=== PATIENT | female | born 1985 ===

== ENCOUNTER 2016-08-25 16:04 | Emergency (ER) | payer SELFPAY ==
[2016-08-25 16:12] VITALS: BP 108/66
--- NOTE | 2016-08-25 18:12 | UC ---
Lambert Yañez Benjamin, scribed for Madison Garcia MD on 08/25/16 at 1721 . Abdominal Pain Female HPI - HPI Summary HPI Summary: 31yo female c/o having intermittent RLQ and LLQ pain for a month that started to linger and worsened the past 4 days. The pain is worse on the right, and is described as sharp poking pain in 6 out of 10 scale that radiates to lower back. Pain is worse with pressure on right foot. Urinating provides a brief relief. Denies vaginal discharge, hematuria, and is not on BCP. Pt is currently breast feeding. LMP was on August 07, and was a normal MP. [id number]. No Hx of C- section. Hx of Appy. Gall bladder is still intact. Fhx includes breast CA. Pt states that she experiences lots of groin muscle strains from carrying her childrens. - History of Current Complaint Chief Complaint: UCAbdominalPain Stated Complaint: ABDOMINAL AND BACK PAIN Hx Obtained From: Patient Hx Last Menstrual Period: 08/03/16 ?: No Onset/Duration: Gradual Onset, Lasting Weeks - for a month, Still Present, Worse Since - 4 days ago Timing: Intermittent Episodes Lasting: Severity Initially: Mild Severity Currently: Moderate Pain Intensity: 6 Pain Scale Used: 0-10 Numeric Location: Discrete At: RLQ, Discrete At: LLQ Radiates: Yes Radiates to: Back - lower back Character: Sharp Aggravating Factor(s): Other: - pressure on right foot Alleviating Factor(s): Nothing Associated Signs and Symptoms: Positive: Back Pain - lower Allergies/Adverse Reactions: Allergies Allergy/AdvReac Type Severity Reaction Status Date / Time Shellfish Allergy Allergy Hives/Diff. Verified 08/25/16 16:36 Breathing/I tching PMH/Surg Hx/FS Hx/Imm Hx Previously Healthy: Yes - Surgical History Surgical History: Yes Surgery Procedure, Year, and Place: appendix age 21 - Family History Known Family History: Positive: Other - breast CA Negative: Cardiac Disease, Hypertension, Diabetes - Social History Occupation: Employed Full-time Lives: With Family Alcohol Use: Rare Substance Use Type: None Smoking Status (MU): Never Smoked Tobacco Review of Systems Constitutional: Negative Skin: Negative Eyes: Negative ENT: Negative Respiratory: Negative Cardiovascular: Negative Gastrointestinal: Abdominal Pain - RLQ and LLQ Genitourinary: Negative Motor: Negative Neurovascular: Negative Musculoskeletal: Negative Neurological: Negative Psychological: Negative All Other Systems Reviewed And Are Negative: Yes Physical Exam Triage Information Reviewed: Yes Appearance: Well-Appearing, Well-Nourished, Pain Distress - mild Vital Signs: Initial Vital Signs Temp 99.6 F 08/25/16 16:11 Pulse 68 08/25/16 16:11 Resp 16 08/25/16 16:11 BP 108/66 08/25/16 16:11 Pulse Ox 100 08/25/16 16:11 Vital Signs Reviewed: Yes Eyes: Positive: Conjunctiva Clear ENT: Positive: Normal ENT inspection, Hearing grossly normal. Negative: Muffled /hoarse voice Neck: Positive: Supple, Nontender Respiratory: Positive: Lungs clear, Normal breath sounds, No respiratory distress Cardiovascular: Positive: RRR, No Murmur, Pulses Normal Abdomen Description: Positive: No Organomegaly, Soft, Other: - Tender along the rectus muscles, bilaterally.. Negative: CVA Tenderness (R), CVA Tenderness (L) , Distended, Guarding, Hepatomegaly, McBurney's Point Tenderness, Peritoneal Signs, Pulsatile Mass, Splenomegaly Bowel Sounds: Positive: Present, Other: - Pelvic exam: minimal white vaginal discharge, uterus nontender, normal size, ovaries no masses, nontender. Nl ext genitalia. Musculoskeletal: Positive: Strength Intact, ROM Intact Neurological: Positive: Alert, Muscle Tone Normal Psychological: Positive: Age Appropriate Behavior Skin Exam: Normal Diagnostics - Laboratory Diagnostic Studies Completed/Ordered: UA: normal urine. Pregancy test: negative. Abd Pain Female Course/Dx - Course Course Of Treatment: Allergies noted. UA and preg neg. Pelvic exam done. - Differential Dx/Diagnosis Differential Diagnosis: Ectopic , , Renal Colic, Urinary Tract Infection, Other - STD, muscle strain Provider Diagnoses: Rectus Muscle Strain. abdominal pain Discharge - Discharge Plan Condition: Stable Disposition: HOME Patient Education Materials: Muscle Strain (ED) Referrals: [facility] [Outside] - As Soon As Possible No Primary Care Phys,NOPCP [Primary Care Provider] - Additional Instructions: Dr. Garcia did a pelvic exam today but there did not appear to be any abnormalities on the exam. She has sent cultures and we will notify you if you need further treatment based on those results. The results take 3-4 days to return. Your urinalysis and test were also both normal today. The best diagnosis for your discomfort at this time is a strain of the rectus abdominus muscle, also called a "rectus muscle strain". There was no hernia on exam today. This should heal with some rest and anti inflammatory medication. Try to minimize your lifting until the pain improves. You may take a maximum of ibuprofen 800mg four times a day for pain and inflammation. Return to urgent care if you have any new or worsening symptoms. The documentation as recorded by the Lambert sharp Benjamin accurately reflects the service I personally performed and the decisions made by me, Madison Garcia MD.
== END 2016-08-25 18:10 | disposition home or self-care (01) ==
LOC: UCEAST 16:04
DX: S39.011A Strain of muscle, fascia and tendon of abdomen, initial encounter (principal); X58.XXXA Exposure to other specified factors, initial encounter; Y93.9 Activity, unspecified; Y92.9 Unspecified place or not applicable; R10.31 Right lower quadrant pain; R10.32 Left lower quadrant pain; Z91.013 Allergy to seafood; Z32.02 Encounter for pregnancy test, result negative
CPT/HCPCS: 81003; 84702; 87480; 87491; 87510; 87591; 87661; 99212; G0463